=== PATIENT | male | born 1990 | race Caucasian/White ===

== ENCOUNTER 2016-09-12 17:54 | Emergency (ER) | payer OTHER ==
[~2016-09-12] VITALS: Ht 177.8 cm; Wt 81.6 kg
[~2016-09-12 17:54] MED LIST: BACTRIM DS 8001 TA1 PO; BACTROBAN CREAM15 GM PO; DARVOCET A500 51 TAB PO; MOBIC7.5 MG PO; MOTRIN800 MG PO; PEN-VK500 MG PO
[2016-09-12 18:00] VITALS: BP 135/98
[2016-09-12] MEDS ORDERED: CLINDAMYCIN HC300 MG PO (18:17)
== END 2016-09-12 18:39 | disposition home or self-care (01) ==
LOC: ED 17:54
DX: K02.9 Dental caries, unspecified (principal); F17.200 Nicotine dependence, unspecified, uncomplicated

== ENCOUNTER 2017-01-19 22:54 | Inpatient (IN) | payer OTHER ==
[~2017-01-19] VITALS: Ht 175.3 cm; Wt 87.7 kg
--- NOTE | ~2017-01-19 | O ---
[place], [place] OPERATIVE NOTE NAME: STEFFI DICKSON [facility] #: [id number] UNIT #: [id number] ROOM: 529 DOCTOR: JONATHAN MELGAR MD BIRTHDATE: [birth year] DOS: 01/20/2017 PREOPERATIVE DIAGNOSIS: Acute appendicitis. POSTOPERATIVE DIAGNOSIS: Acute appendicitis. PROCEDURE: Laparoscopic appendectomy. SURGEON: Jonathan Melgar MD ACCOUNT ENGINEER: MELO. ANESTHESIA: GET. INDICATIONS: This is a 26-year-old gentleman admitted with acute abdominal pain and was found to have acute appendicitis. It was decided to take the patient to the operating room for the above-mentioned procedure. The procedure and its complications were explained to the patient in detail preoperatively. Complications that were discussed included but were not limited to bleeding, infection, prolonged postoperative pain, damage to underlying vital structures and he agreed to proceed. DESCRIPTION OF PROCEDURE: After identifying the patient, the patient was brought to the operating suite and laid in the supine position. After induction of general anesthesia, the parts were painted and draped in the usual sterile fashion. Prior to that, a García catheter was introduced into the urinary bladder. The left upper extremity was stuck to the patient's side. A time-out procedure was called. An incision was made above the umbilicus in a transverse fashion. The skin and the subcutaneous tissue were incised. The fascia was incised vertically and the peritoneum was opened. A 12 mm Julisa port was introduced and a pneumoperitoneum was created. Under direct vision, a left lower quadrant incision of 11 mm and suprapubic incision of 5 mm was made and appropriate size ports were introduced. The patient was placed in Trendelenburg right side up position. The appendix was identified and was found to be extremely inflamed. It was held up with the help of an Endo Jacquelyn forceps and the base of the appendix was then stapled across with the help of Endo-CHASIDY stapler. The specimen was placed in an EndoCatch bag and removed from the peritoneal cavity and sent for histopathological diagnosis. Copious amounts of saline was used for irrigation. Thereafter, a 15-Vietnamese round Ward-Talavera drain was placed through the suprapubic drain site and placed in the right lower quadrant. The suprapubic port was then removed and the drain was then fixed to the overlying skin with the help of nylon stitch. Drain was cut to size and was applied towards the end. The fascial defect in the midline incision was then approximated with the help of 4-0 Vicryl in an interrupted fashion. The edges of the skin were approximated with the help of 4-0 Vicryl after the edges were infiltrated with 1% plain lidocaine. A dressing was placed, García catheter was removed. The patient was extubated uneventfully and brought back to the recovery room in stable fashion. There were no complications. Dr. Jonathan Melgar, the attending surgeon, was present throughout the operating case. [place], [place] OPERATIVE NOTE NAME: STEFFI DICKSON UNIT #: [id number] ROOM: 529 DOCTOR: JONATHAN MELGAR MD BIRTHDATE: [birth year] Jonathan Melgar MD CM:OPRECORD:OPERATIVE NOTE 1201 [id number] JONATHAN MELGAR MD 01/20/17 1239 interface
[~2017-01-19 22:54] MED LIST changes: +CLINDAMYCIN HC300 MG PO
[2017-01-19 23:00] VITALS: BP 133/85
[2017-01-19 23:22] LABS: BASO % 0.3 % (0.0-1.0); EOS # 0.1 10*3/uL (0.0-0.4); EOS % 0.3 % (1.0-4.0); HEMATOCRIT 41.8 % (42.0-52.0); HEMOGLOBIN 14.8 g/dl (14.0-18.0); LYMPH % 13.3 % (27.0-41.0); MEAN CORPUSCULAR HGB 31.2 pg (27.0-31.0); MEAN CORPUSCULAR HGB CONC 35.4 g/dl (33.0-37.0); MEAN PLATELET VOLUME 9.9 fl (9.6-12.3); MONO # 0.9 10*3/uL (0.1-1.0); MONO % 6.2 % (3.0-9.0); NEUT # 11.9 10*3/uL (2.3-7.9); NEUT % 79.6 % (47.0-73.0); PLATELET COUNT AUTOMATED 267 10*3/uL (130-400); RED BLOOD COUNT 4.75 10*6/uL (4.50-5.90); RED CELL DISTRI WIDTH 11.9 % (0-14.5); WHITE BLOOD COUNT 14.9 10*3/uL (4.8-10.8)
--- NOTE | 2017-01-19 23:23 | NUR ---
PATIENT OFF UNIT TO CT. CONDITION STABLE.
--- NOTE | 2017-01-19 23:34 | NUR ---
PATIENT RETURNED FROM CT. PROVIDED PATIENT WITH URINE SPECIMEN CONTAINER AND ENCOURAGED TO LEAVE SPECIMEN.
[2017-01-19 23:37] LABS: ALBUMIN 4.5 gm/dl (3.1-4.5); ALKALINE PHOSPHATASE 89 U/L (45-117); BUN 9 mg/dl (7-24); CHLORIDE 99 mmol/L (98-107); CREATININE 0.78 mg/dL (0.70-1.30); LIPASE 71 U/L (73-393); POTASSIUM 3.4 mmol/L (3.5-5.1); SGOT/AST 18 IU/L (3-35); SGPT/ALT 25 U/L (12-78); SODIUM 137 mmol/L (136-145); TOTAL PROTEIN 8.4 gm/dL (6.4-8.2)
[2017-01-20] VITALS (11 sets, daily range): BP systolic 110–142; BP diastolic 58–83
[2017-01-20 00:45] LABS: BILIRUBIN 1+ (NEGATIVE); BLOOD TRACE-LYSED (NEGATIVE); CLARITY SL CLOUDY (CLEAR); COLOR YELLOW (YELLOW); GLUCOSE NEGATIVE (NEGATIVE); KETONE 3+ (NEGATIVE); LEUKO ESTERASE NEGATIVE (NEGATIVE); NITRITE NEGATIVE (NEGATIVE); PH 6.5 (5.0-9.0)
[2017-01-20 00:52] LABS: MUCOUS TRACE
[2017-01-20 00:53] LABS: WBC 0-2 wbc/hpf (0-5)
--- NOTE | 2017-01-20 01:48 | NUR ---
A 26, admitted to 5E, under the services of LILIAN Birmingham DO with a diagnosis of PERFORATED APPENDICITIS AND SEPSIS. Chief complaint is ABDOMINAL PAIN. Patient arrived via stretcher from ER. Monitor applied. Initial assessment completed. Vital signs taken and recorded. LILIAN BIRMINGHAM DO notified of admission to the unit. Orders received. See assessment for past medical history, medications and allergies. Patient and/or family oriented to unit. [facility] visitation policy reviewed. Clothing/patient valuable form completed. ELIECER LOPEZ
--- NOTE | 2017-01-20 02:15 | NUR ---
MED REC COMPLETED. DR ISABEL NOTIFIED.
--- NOTE | 2017-01-20 03:10 | NUR ---
PT MEDICATED WITH DILAUDID FOR C/O RLQ PAIN. PT RESTING IN BED, WILL CONTINUE TO MONITOR. CALL LIGHT WITHIN REACH
--- NOTE | 2017-01-20 03:45 | NUR ---
DILAUDID EFFECTIVE IN RELIEF OF ABDOMINAL PAIN.
[2017-01-20 06:11] LABS: ALBUMIN 3.6 gm/dl (3.1-4.5); ALKALINE PHOSPHATASE 76 U/L (45-117); BUN 9 mg/dl (7-24); CHLORIDE 102 mmol/L (98-107); CHOLESTEROL 88 mg/dL (<200); CREATININE 0.74 mg/dL (0.70-1.30); FREE T4 1.46 ng/dl (0.76-1.46); HDL CHOLESTEROL 56 mg/dl (40-60); LDL CHOLESTEROL 23 mg/dL (9-159); PHOSPHOROUS 3.1 mg/dL (2.5-4.9); POTASSIUM 3.7 mmol/L (3.5-5.1); SGOT/AST 14 IU/L (3-35); SGPT/ALT 21 U/L (12-78); SODIUM 136 mmol/L (136-145); TOTAL PROTEIN 7.2 gm/dL (6.4-8.2); TRIGLYCERIDES 43 mg/dl (<150); VLDL CHOLESTEROL 9 mg/dL (6-40)
--- NOTE | 2017-01-20 06:19 | NUR ---
DILAUDID GIVEN FOR PT REPORT OF PAIN. PT PAIN WAS EXCRUCIATING AT THIS POINT DURING IV ADMINISTRATION BUT MINUTES AFTER HE FELT RELIEF FROM PAIN. FELICIANOLFRIEND PRESENT IN ROOM STATED "WHY IS THIS PAIN MEDICINE NOT WORKING" DURING ADMIN BUT ALSO FELT RELIEF WHEN SHE NOTICED THE PAIN MEDICINE TAKE EFFECT.
[2017-01-20 06:20] LABS: ACT PARTIAL THROMBO TIME 27.8 SECONDS (20.8-31.5)
[2017-01-20 06:28] LABS: BASO % 0.2 % (0.0-1.0); EOS # 0.1 10*3/uL (0.0-0.4); EOS % 0.4 % (1.0-4.0); HEMATOCRIT 38.9 % (42.0-52.0); HEMOGLOBIN 13.3 g/dl (14.0-18.0); LYMPH # 1.5 10*3/uL (1.3-4.4); LYMPH % 12.8 % (27.0-41.0); MEAN CELL VOLUME 89.4 fl (80.0-94.0); MEAN CORPUSCULAR HGB 30.6 pg (27.0-31.0); MEAN CORPUSCULAR HGB CONC 34.2 g/dl (33.0-37.0); MEAN PLATELET VOLUME 10.2 fl (9.6-12.3); MONO # 0.7 10*3/uL (0.1-1.0); MONO % 6.1 % (3.0-9.0); NEUT # 9.7 10*3/uL (2.3-7.9); NEUT % 80.2 % (47.0-73.0); PLATELET COUNT AUTOMATED 230 10*3/uL (130-400); RED BLOOD COUNT 4.35 10*6/uL (4.50-5.90); RED CELL DISTRI WIDTH 11.9 % (0-14.5); WHITE BLOOD COUNT 12.1 10*3/uL (4.8-10.8)
--- NOTE | 2017-01-20 08:00 | NUR ---
PT AWAKE ASSESSMENT COMPLETE. PT LEFT FLOOR VIA BED FOR SURGERY AT 0815
[2017-01-20 08:50] LABS: VITAMIN D, 25-HYDROXY 9.2 ng/mL (30-100)
--- NOTE | 2017-01-20 11:13 | NUR ---
SURGERY CALLED REPORT ON PT
--- NOTE | 2017-01-20 15:40 | NUR ---
A 26, admitted to 5E, under the services of LILIAN Birmingham DO with a diagnosis of LOSS OF APPETITE, ANEMIA,DECUBITIS ULCER, HEEL WOUND, ELEVATED INR, ACUTE CKD. Chief complaint is ELEVATED INR. Patient arrived via bed from ER. Monitor applied. Initial assessment completed. Vital signs taken and recorded. LILIAN BIRMINGHAM DO notified of admission to the unit. Orders received. See assessment for past medical history, medications and allergies. Patient and/or family oriented to unit. [facility] visitation policy reviewed. Clothing/patient valuable form completed. ASSESSMENT COMPLETE. WOUNDS ON COCCYX AND LEFT HEEL. WILL MEASURE AND PHOTOGRAPH. PNEUMONIA VACCINATION CURRENT. WANTS FLU VACCINATION. HOME MEDICATIONS VERIFIED WITH [facility]. EDWARD ALAN
--- NOTE | 2017-01-20 23:33 | NUR ---
PT GIVEN NORCO 2 TAB FOR PAIN RATED 7/10. WILL MONITOR EFFECTIVENESS.
[2017-01-21] VITALS: BP 123/79
--- NOTE | 2017-01-21 | NUR ---
PT RESTING, RESPIRATIONS EASY. CALL LIGHT WITHIN REACH. [facility]
--- NOTE | 2017-01-21 05:00 | NUR ---
PT REQUEST NORCO FOR C/O PAIN 11/29. PT ASSISTED TO RR AND PASSING FLATUS. STATES FEELING A LITTLE BETTER AFTER THE FLATUS. CALL LIGHT IN REACH, WILL CONTINUE TO MONITOR.
--- NOTE | 2017-01-21 06:00 | NUR ---
PT RESTING IN BED, RESPIRATIONS EASY. NORCO EFFECTIVE, CALL LIGHT WITHIN REACH.
[2017-01-21 06:27] LABS: BASO % 0.1 % (0.0-1.0); HEMATOCRIT 34.5 % (42.0-52.0); LYMPH # 0.8 10*3/uL (1.3-4.4); LYMPH % 6.5 % (27.0-41.0); MEAN CELL VOLUME 90.3 fl (80.0-94.0); MEAN CORPUSCULAR HGB 31.4 pg (27.0-31.0); MEAN CORPUSCULAR HGB CONC 34.8 g/dl (33.0-37.0); MEAN PLATELET VOLUME 10.1 fl (9.6-12.3); MONO # 0.6 10*3/uL (0.1-1.0); MONO % 5.2 % (3.0-9.0); NEUT # 10.8 10*3/uL (2.3-7.9); NEUT % 87.8 % (47.0-73.0); PLATELET COUNT AUTOMATED 204 10*3/uL (130-400); RED BLOOD COUNT 3.82 10*6/uL (4.50-5.90); WHITE BLOOD COUNT 12.3 10*3/uL (4.8-10.8)
[2017-01-21 06:55] LABS: ALBUMIN 2.8 gm/dl (3.1-4.5); ALKALINE PHOSPHATASE 75 U/L (45-117); BUN 11 mg/dl (7-24); CHLORIDE 105 mmol/L (98-107); CREATININE 0.68 mg/dL (0.70-1.30); POTASSIUM 3.8 mmol/L (3.5-5.1); SGOT/AST 23 IU/L (3-35); SGPT/ALT 22 U/L (12-78); SODIUM 138 mmol/L (136-145); TOTAL PROTEIN 6.7 gm/dL (6.4-8.2)
[2017-01-21 08:00] VITALS: BP 105/66
[2017-01-21 12:00] VITALS: BP 123/70
--- NOTE | 2017-01-21 13:50 | NUR ---
Discharge instructions reviewed with patient/family. Patient receptive and verbalizes understanding. Follow-up care arranged. Written instructions given to patient/family. VENITA LANG
== END 2017-01-21 13:47 | disposition home or self-care (01) | DRG 853 ==
LOC: ED 22:54 → EDHOLD 01-20 00:03 → 5E 01-20 00:21
PROVIDERS: Internal Medicine; Student in an Organized Health Care Education/Training Program; Surgery; ADMIT Emergency Medicine
PROC: 0DTJ4ZZ Resection of Appendix, Percutaneous Endoscopic Approach (ICD-10-PCS; principal; 2017-01-20)
DX: A41.9 Sepsis, unspecified organism (principal); K35.2 Acute appendicitis with generalized peritonitis; E66.3 Overweight; K59.00 Constipation, unspecified; R03.0 Elevated blood-pressure reading, without diagnosis of hypertension; R73.9 Hyperglycemia, unspecified; E87.6 Hypokalemia; R31.29 Other microscopic hematuria; F17.200 Nicotine dependence, unspecified, uncomplicated; Z71.6 Tobacco abuse counseling; Z82.5 Family history of asthma and other chronic lower respiratory diseases; Z79.2 Long term (current) use of antibiotics; Z68.28 Body mass index [BMI] 28.0-28.9, adult

== ENCOUNTER 2019-08-13 18:45 | Emergency (ER) | payer BC ==
[~2019-08-13] VITALS: Ht 177.8 cm; Wt 77.1 kg
[2019-08-13 19:12] VITALS: BP 132/85
[2019-08-13] MEDS ORDERED: PENICILLIN VK500 MG PO (19:50)
== END 2019-08-13 19:58 | disposition home or self-care (01) ==
LOC: ED 18:45
DX: S02.5XXA Fracture of tooth (traumatic), initial encounter for closed fracture (principal); K04.7 Periapical abscess without sinus; Z87.891 Personal history of nicotine dependence; X58.XXXA Exposure to other specified factors, initial encounter; Y93.89 Activity, other specified; Y92.89 Other specified places as the place of occurrence of the external cause; Y99.8 Other external cause status